=== PATIENT | female | born 1975 | race African-American/Black ===

== ENCOUNTER 2016-10-30 10:33 | Emergency (ER) | payer OTHER ==
[~2016-10-30] VITALS: Ht 157.5 cm; Wt 40.8 kg
[~2016-10-30 10:33] MED LIST: ACETAMINOPHEN-1 EAC2 ORAL; AUGMENTIN 875-1 EAC1 ORAL; AZITHROMYCIN250 MG ORAL; HYDROCODON-ACE1 EA16 ORAL; LEVAQUIN500 MG ORAL; NAPROXEN375 M2 ORAL; NORCO 10/3251 EA ORAL; VICODIN ES 7.51 EACH PO; ZANTAC150 MG ORAL
[2016-10-30] MEDS ORDERED: OXYCODONE HCL5 M2 ORAL (10:43)
[2016-10-30] MEDS ORDERED: Ketorolac 60mg Inj IM ONE (11:00)
--- NOTE | 2016-10-30 11:16 | Emergency Room Report ---
History of Present Illness General Chief Complaint: Lower Extremity Injury Source: Patient Present Illness HPI The patient tripped over a branch last week and twisted her right ankle and to her left foot. She's still has pain and difficulty with walking. She has to climb up stairs to get to home. The pain is reported 10/10 sharp and aching, some radiation up legs. She has not taken pain medicine. Swelling is getting better. Scrapes L foot. Tetanus UTD. No fevers, calf tenderness or swelling. No dyspnea. No dysuria. Sickle C disease. "I am used to taking strong pain medicine." Allergies: Coded Allergies: HYDROMORPHONE HCL (Verified Allergy, Unknown, Itching, 09/25/16) Needs Benadryl first. MORPHINE (Verified Allergy, Unknown, Itching, 09/25/16) Needs Benadryl first Patient History Past Medical History: see triage record Social History: Reports: smoking Social History Narrative at home Last Menstrual Period: Depo shot Reviewed Nursing Documentation: PMH: Agreed, PSxH: Agreed Nursing Documentation-PMH Past Medical History: No History, Except For Hx Hypertension: No Hx Pacemaker: No Hx Asthma: No Hx COPD: No Hx Diabetes: No Hx Cancer: No Hx Dialysis: No Hx Neurological Problems: No Hx Cerebrovascular Accident: No Hx Seizures: No Review of Systems All Other Systems: negative except mentioned in HPI Physical Exam Vital Signs Date Time Temp Pulse Resp B/P Pulse Ox O2 Delivery O2 Flow Rate FiO2 10/30/16 10:39 98.8 116 18 105/66 94 Room Air Sp02 EP Interpretation: reviewed, abnormal - slightly low interpreted by me ( smoker) General Appearance: well appearing, no apparent distress, thin Head: normocephalic, atraumatic Eyes: bilateral eye PERRL, bilateral eye normal inspection ENT: hearing grossly normal, normal voice, moist mucus membranes Neck: full range of motion, supple Respiratory: no respiratory distress, speaking full sentences Gastrointestinal: non tender Musculoskeletal: no calf tenderness, swelling - dorsum of L foot and R lateral maleolus. No ligament laxity. Knees not tender. 5th MT bilat normal. TTP mid foot L. Neurologic: alert, motor strength/tone normal, sensory intact, normal gait Psychiatric: mood/affect normal Skin: abrasions - L dorsum foot - healing Medical Decision Making Diagnostic Impression: Primary Impression: Right ankle sprain Qualified Codes: S93.431A - Sprain of tibiofibular ligament of right ankle, initial encounter Additional Impression: Spran/contuion L foot ER Course Patient presents with R ankle and L foot injuries sustained 1 week ago. Ddx: fx , contusion, sprain. No evidence of cellulitis. Xrays indicated. Xrays with STS and no fractures. Air cast (R - initially place on L by tech - replaced by me) and brandon L with good position and tension. Neurovasc normal. She states shot did nothing for her. Oral analgesic ordered. Attempt to review Cures - unable. Small tramadol rx given. Patient stable for outpatient observation and treatment. Other X-Ray Diagnostic Results Other X-Ray Diagnostic Results #1: X-Ray Ordered: R ankle EP Interpretation: Yes Findings: no fractures, no dislocation, other - STS lat maleolus Number of Views: 3 Other X-Ray Diagnostic Results #2: X-Ray Ordered: L foot EP Interpretation: Yes Findings: no fractures, no dislocation, no soft tissue swelling Number of Views: 3 Last Vital Signs Date Time Temp Pulse Resp B/P Pulse Ox O2 Delivery O2 Flow Rate FiO2 10/30/16 12:30 98.8 96 16 109/47 95 Room Air Status: improved Disposition: HOME, SELF-CARE Condition: Improved Scripts Tramadol Hcl* (ULTRAM*) 50 Mg Tablet 50 MG ORAL Q6H Y for For Pain, #6 TAB 0 Refills Prov: Matthew Birch M.D. 10/30/16 Ibuprofen* (MOTRIN*) 600 Mg Tablet 600 MG ORAL Q6H Y for For Pain, #20 TAB Prov: Matthew Birch M.D. 10/30/16 Referrals: [facility],REFERRING (PCP) Matthew Birch M.D. Oct 30, 2016 11:16
[2016-10-30] MEDS ORDERED: IBUPROFEN600 MG ORAL (11:51)
[2016-10-30] MEDS ORDERED: TRAMADOL HCL50 MG ORAL (11:51)
--- NOTE | 2016-10-30 11:56 | Diagnostic Imaging Report ---
Indications: Left foot injury, pain Technique: 3 views left foot. Findings: Comparison: None No fracture, dislocation, joint space widening , surrounding soft tissue swelling/foreign body/other abnormality, or other acute changes are identified. IMPRESSION: No evidence of acute injury to left foot.
[2016-10-30 12:30] VITALS: BP 109/47
[2016-10-30] MEDS ORDERED: Oxycodone/Acetaminophen 5-325 ORAL ONE (12:30)
--- NOTE | 2016-10-30 12:31 | Diagnostic Imaging Report ---
Indications: Right ankle injury, pain Technique: 3 views right ankle. Findings: Comparison: None Anterolateral soft tissues are very mildly swollen. No fracture, dislocation, joint space widening , additional soft tissue swelling/foreign body/gas, or other acute changes are identified. IMPRESSION: Consider ATFL sprain No other evidence of acute injury to the right ankle
== END 2016-10-30 12:30 | disposition home or self-care (01) ==
LOC: EMR 11:00
DX: S93.491A Sprain of other ligament of right ankle, initial encounter (principal); S93.602A Unspecified sprain of left foot, initial encounter; W01.0XXA Fall on same level from slipping, tripping and stumbling without subsequent striking against object, initial encounter; Y92.89 Other specified places as the place of occurrence of the external cause; Z88.6 Allergy status to analgesic agent
CPT/HCPCS: 29540; 96372; 99284

== ENCOUNTER 2016-12-03 16:06 | Emergency (ER) | payer OTHER ==
[~2016-12-03] VITALS: Ht 157.5 cm; Wt 45.4 kg
[~2016-12-03 16:06] MED LIST changes: +IBUPROFEN600 MG ORAL; +OXYCODONE HCL5 M2 ORAL; +TRAMADOL HCL50 MG ORAL
--- NOTE | 2016-12-03 17:30 | Emergency Room Report ---
History of Present Illness General Chief Complaint: Upper Respiratory Illness Source: Patient Present Illness HPI 41-year-old female presents to emergency Department complaining of productive cough x4 days denies fevers or chills also reports nasal congestion and pressure in the ears bilaterally. Denies recent travel reports ill contacts as her children all have similar symptoms. Patient denies abdominal pain, rash is her neck pain or stiffness denies headaches. Denies CP, Palpitations, LOC, AMS, dizziness, Changes in Vision, Sensation, paresthesias, or a sudden severe headache. Allergies: Coded Allergies: HYDROMORPHONE HCL (Verified Allergy, Unknown, Itching, 09/25/16) Needs Benadryl first. MORPHINE (Verified Allergy, Unknown, Itching, 09/25/16) Needs Benadryl first Patient History Past Medical History: see triage record Past Surgical History: none Pertinent Family History: none Last Menstrual Period: Depo Now: No Immunizations: UTD Reviewed Nursing Documentation: PMH: Agreed, PSxH: Agreed Nursing Documentation-PMH Hx Hypertension: No Hx Pacemaker: No Hx Asthma: No Hx COPD: No Hx Diabetes: No Hx Cancer: No Hx Dialysis: No Hx Neurological Problems: No Hx Cerebrovascular Accident: No Hx Seizures: No Review of Systems All Other Systems: negative except mentioned in HPI Physical Exam Vital Signs Date Time Temp Pulse Resp B/P Pulse Ox O2 Delivery O2 Flow Rate FiO2 12/03/16 17:08 98.2 96 16 112/75 100 Room Air Sp02 EP Interpretation: reviewed, normal General Appearance: no apparent distress, alert, GCS 15, non-toxic Head: normocephalic, atraumatic Eyes: bilateral eye PERRL, bilateral eye normal inspection ENT: hearing grossly normal, normal pharynx, no angioedema, normal voice, TMs + canals normal, uvula midline, moist mucus membranes, nasal congestion Neck: full range of motion, no meningismus, no bony tend, supple/symm/no masses Respiratory: chest non-tender, lungs clear, normal breath sounds, no rhonchi, no accessory muscle use, no wheezing, speaking full sentences Cardiovascular #1: regular rate, rhythm, no edema Musculoskeletal: back normal, gait/station normal, normal range of motion, non- tender Neurologic: alert, oriented x3, responsive, motor strength/tone normal, sensory intact, speech normal Psychiatric: judgement/insight normal, memory normal, mood/affect normal, no suicidal/homicidal ideation Skin: normal color, no rash, warm/dry, well hydrated Lymphatic: no adenopathy Medical Decision Making PA Attestation Dr. Birch is my supervising Physician whom patient management has been discussed with. Diagnostic Impression: Primary Impression: Bronchitis Additional Impression: Nasal congestion with rhinorrhea ER Course 41-year-old female presents to emergency Department complaining of productive cough x4 days denies fevers or chills also reports nasal congestion and pressure in the ears bilaterally. Denies recent travel reports ill contacts as her children all have similar symptoms. Ddx considered but are not limited to URI, pneumonia, PE, strep pharyngitis, meningitis. Vital signs: Pt.is afebrile VS are WNL H&PE are most consistent with bronchitis ORDERS: none required at this time, the diagnosis is clinical ED INTERVENTIONS: None required at this time. DISCHARGE: At this time pt. is stable for d/c to home. Will provide printed patient care instructions, and any necessary prescriptions. Care plan and follow up instructions have been discussed with the patient prior to discharge. Last Vital Signs Date Time Temp Pulse Resp B/P Pulse Ox O2 Delivery O2 Flow Rate FiO2 12/03/16 17:08 98.2 96 16 112/75 100 Room Air Disposition: HOME, SELF-CARE Condition: Stable Scripts Pseudoephedrine Hcl* (NEXAFED*) 30 Mg Tablet 30 MG ORAL Q6H Y for congestion for 7 Days, #21 TAB Prov: Samina Moy.AVel 12/03/16 Guaifenesin (Guaifenesin) 1,200 Mg Tab.er.12h 1200 MG PO BID for 10 Days, #20 TAB Prov: Samina Moy P.A. 12/03/16 Codeine/Promethazine Hcl* (PROMETHAZINE-CODEINE SYRUP*) 118 Ml Syrup 5 ML ORAL Q6H Y for For Cough, #118 ML 0 Refills Prov: Samina Moy.Isai 12/03/16 Referrals: NON PHYSICIAN (PCP) Patient Instructions: Acute Bronchitis Additional Instructions: Take medications as directed. Follow up with PCP in 3-5 days Return sooner to ED if new symptoms occur, or current symptoms become worse. Do not drink alcohol, drive, or operate heavy machinery while taking Cough Syrup as this may cause drowsiness. - Please note that this Emergency Department Report was dictated using [employer] wire operator technology software, occasionally this can lead to erroneous entry secondary to interpretation by the dictation equipment. Samina Moy Dec 03, 2016 17:30
[2016-12-03 17:33] VITALS: BP 118/81
[2016-12-03] MEDS ORDERED: PROMETHAZINE-C118 M1 ORAL (17:33)
[2016-12-03] MEDS ORDERED: NEXAFED30 MG ORAL (17:33)
[2016-12-03] MEDS ORDERED: GUAIFENESIN1200 MG PO (17:33)
[2016-12-03 18:26] VITALS: BP 118/81
== END 2016-12-03 18:26 | disposition home or self-care (01) ==
LOC: EMR 17:05
DX: J40 Bronchitis, not specified as acute or chronic (principal); R09.81 Nasal congestion; Z88.6 Allergy status to analgesic agent
CPT/HCPCS: 99284

== ENCOUNTER 2017-04-05 13:30 | Emergency (ER) | payer OTHER ==
[~2017-04-05] VITALS: Ht 157.5 cm; Wt 45.8 kg
[~2017-04-05 13:30] MED LIST changes: +GUAIFENESIN1200 MG PO; +NEXAFED30 MG ORAL; +PROMETHAZINE-C118 M1 ORAL
[2017-04-05] MEDS ORDERED: NKM (13:41)
[2017-04-05 13:46] VITALS: BP 109/70
[2017-04-05] MEDS ORDERED: Norco 7.5mg/325mg tab ORAL ONE (14:15)
--- NOTE | 2017-04-05 14:17 | Emergency Room Report ---
History of Present Illness General Chief Complaint: Pain Source: Patient Present Illness HPI 41-year-old female presents emergency department complaining of 10 out of 10 in severity right thumb pain times one day. Patient states she had acute onset after attempting to open a jar of jelly which was stuck closed and she was unable to open. Patient states she has moderate tenderness to the palmar aspect of her hand at the base of the left thumb. Patient denies erythema she reports mild swelling. denies trauma or fall otherwise. She denies increase in temperature to palpation patient also denies history of gout. Patient states she has a history of sickle cell trait and is worried that this may be due to sickle cell. Patient also reports right ear pain, nasal congestion, sore throat with increase in phlegm and intermittent cough x3 days. Patient rates her ear pain as 6/10 in severity and reports feeling increased pressure in her head and inability to breathe through her nose. Patient denies fevers, chills, neck pain/stiffness or ill contacts. Patient states that she does not usually have sickle cell flares however on occasion her primary care doctor will prescribe her some small amount of Trimble that usually subside her symptoms. Patient states she has not recently seen her primary care provider. Denies CP, Palpitations, LOC, AMS, dizziness, Changes in Vision, Sensation, paresthesias, or a sudden severe headache. Allergies: Coded Allergies: HYDROMORPHONE HCL (Verified Allergy, Unknown, Itching, 09/25/16) Needs Benadryl first. MORPHINE (Verified Allergy, Unknown, Itching, 09/25/16) Needs Benadryl first Patient History Past Medical History: see triage record Past Surgical History: none Last Menstrual Period: One month ago - on depo Now: No Reviewed Nursing Documentation: PMH: Agreed, PSxH: Agreed Nursing Documentation-PMH Hx Hypertension: No Hx Pacemaker: No Hx Asthma: No Hx COPD: No Hx Diabetes: No Hx Cancer: No Hx Dialysis: No Hx Neurological Problems: No Hx Cerebrovascular Accident: No Hx Seizures: No Review of Systems All Other Systems: negative except mentioned in HPI Physical Exam Vital Signs Date Time Temp Pulse Resp B/P Pulse Ox O2 Delivery O2 Flow Rate FiO2 04/05/17 13:36 98.1 97 16 109/70 97 Room Air Sp02 EP Interpretation: reviewed, normal General Appearance: no apparent distress, alert, GCS 15, non-toxic Head: normocephalic, atraumatic Eyes: bilateral eye PERRL, bilateral eye normal inspection ENT: hearing grossly normal, normal pharynx, no angioedema, normal voice, TMs + canals normal, uvula midline, nasal congestion, other - pharyngeal erythema in cobble stone appearance, no exudates or tonsillar swelling. Neck: full range of motion, supple/symm/no masses Respiratory: chest non-tender, lungs clear, normal breath sounds, no respiratory distress, no wheezing, speaking full sentences Cardiovascular #1: regular rate, rhythm, no edema Gastrointestinal: non tender, soft, no guarding, no rebound Rectal: deferred Musculoskeletal: back normal, gait/station normal, normal range of motion, tender - TTP to the thenar aspect of the right thumb, no snuff box ttp, no erythema, no appreciable swelling. Neurologic: alert, oriented x3, responsive, motor strength/tone normal, sensory intact, speech normal Psychiatric: judgement/insight normal, memory normal, mood/affect normal Skin: normal color, no rash, warm/dry, well hydrated Medical Decision Making PA Attestation Dr Mancia is my supervising Physician whom patient management has been discussed with. Diagnostic Impression: Primary Impression: Right wrist sprain Qualified Codes: S63.501A - Unspecified sprain of right wrist, initial encounter Additional Impression: Upper respiratory infection, viral ER Course 41-year-old female presents emergency department complaining of 10 out of 10 in severity right thumb pain times one day. Patient states she had acute onset after attempting to open a jar of jelly which was stuck closed and she was unable to open. Patient states she has moderate tenderness to the palmar aspect of her hand at the base of the left thumb. Patient denies erythema she reports mild swelling. denies trauma or fall otherwise. She denies increase in temperature to palpation patient also denies history of gout. Patient states she has a history of sickle cell trait and is worried that this may be due to sickle cell. Patient also reports right ear pain, nasal congestion, sore throat with increase in phlegm and intermittent cough x3 days. Patient rates her ear pain as 6/10 in severity and reports feeling increased pressure in her head and inability to breathe through her nose. Patient denies fevers, chills, neck pain/stiffness or ill contacts. Patient states that she does not usually have sickle cell flares however on occasion her primary care doctor will prescribe her some small amount of Trimble that usually subside her symptoms. Patient states she has not recently seen her primary care provider. Denies CP, Palpitations, LOC, AMS, dizziness, Changes in Vision, Sensation, paresthesias, or a sudden severe headache. Ddx considered but are not limited to Sickle cell crisis, Infection, Sprain, gout/pseudogout Fracture, Dislocation, sprain, URI, OM/OE Vital signs: are WNL, pt. is afebrile H&PE are most consistent with right thumb sprain and URI mainly due to congestion with post nasal drainage. ORDERS: none required at this time. pt. is NAD, non-toxic in appearance ED INTERVENTIONS: - Trimble PO for pain - Thumb spica Right wrist Splint applied by electro tech. Pt. remains neurovascularly intact. DISCHARGE: At this time pt. is stable for d/c to home. Will provide printed patient care instructions, and any necessary prescriptions. Care plan and follow up instructions have been discussed with the patient prior to discharge. Last Vital Signs Date Time Temp Pulse Resp B/P Pulse Ox O2 Delivery O2 Flow Rate FiO2 04/05/17 13:46 98.0 97 16 109/70 97 Room Air Disposition: HOME, SELF-CARE Condition: Stable Scripts Ibuprofen* (MOTRIN*) 600 Mg Tablet 600 MG ORAL THREE TIMES A DAY, #30 TAB 0 Refills Prov: Samina Moy P.A. 04/05/17 Guaifenesin (Guaifenesin) 1,200 Mg Tab.er.12h 1200 MG PO BID for 5 Days, #10 TAB Prov: Samina Moy P.A. 04/05/17 Pseudoephedrine Hcl* (NEXAFED*) 30 Mg Tablet 30 MG ORAL Q6H Y for congestion for 3 Days, #12 TAB Prov: Samina Moy P.A. 04/05/17 Codeine/Promethazine Hcl* (PROMETHAZINE-CODEINE SYRUP*) 118 Ml Syrup 5 ML ORAL Q6H Y for For Cough, #118 ML 0 Refills Prov: Samina Moy P.A. 04/05/17 Patient Instructions: Upper Respiratory Infection, Adult, [id number], Wrist Sprain Additional Instructions: Take medications as directed. Follow up with a Primary Care Provider in 3-5 days, even if your symptoms have resolved. --Please review list of primary care clinics, if you do not already have a primary care provider Return sooner to ED if new symptoms occur, or current symptoms become worse. Do not drink alcohol, drive, or operate heavy machinery while taking Cough Syrup as this may cause drowsiness. - Please note that this Emergency Department Report was dictated using [employer] payable payroll coordinator technology software, occasionally this can lead to erroneous entry secondary to interpretation by the dictation equipment. Samina Moy Apr 05, 2017 14:17
[2017-04-05] MEDS ORDERED: GUAIFENESIN1200 MG PO (14:19)
[2017-04-05] MEDS ORDERED: NEXAFED30 MG ORAL (14:19)
[2017-04-05] MEDS ORDERED: IBUPROFEN600 MG ORAL (14:19)
[2017-04-05] MEDS ORDERED: PROMETHAZINE-C118 M1 ORAL (14:19)
[2017-04-05 14:37] VITALS: BP 109/70
== END 2017-04-05 14:37 | disposition home or self-care (01) ==
LOC: EMR 14:11
DX: S63.501A Unspecified sprain of right wrist, initial encounter (principal); X50.9XXA Other and unspecified overexertion or strenuous movements or postures, initial encounter; Y92.89 Other specified places as the place of occurrence of the external cause; J06.9 Acute upper respiratory infection, unspecified; B34.9 Viral infection, unspecified; Z88.6 Allergy status to analgesic agent
CPT/HCPCS: 29260; 99284

== ENCOUNTER 2017-04-27 16:02 | Emergency (ER) | payer OTHER ==
[~2017-04-27] VITALS: Ht 157.5 cm; Wt 45.4 kg
[~2017-04-27 16:02] MED LIST changes: +NKM
[2017-04-27 16:44] VITALS: BP 114/70
[2017-04-27] MEDS ORDERED: NORCO 5-325 TA1 EAC1 ORAL (17:46)
[2017-04-27 18:27] VITALS: BP 114/70
--- NOTE | 2017-04-27 21:03 | Emergency Room Report ---
History of Present Illness General Chief Complaint: Abdominal Pain Source: Patient Present Illness HPI The patient is a 41-year-old female presenting for right wrist pain and total body pain. The patient states that she has a history of sickle cell disease and ran out of [employer] yesterday. She states that she has an appointment to see primary doctor in 2 days. Total-body patient describes a 10 out of 10 dull ache. The patient also injured the right wrist 2 weeks prior and was seen in this emergency department. X-ray was not done. She was placed in a splint and pain has continued. It is a 9/10 dull ache it is worse with wrist movement. She denies any other symptoms Allergies: Coded Allergies: HYDROMORPHONE HCL (Verified Allergy, Unknown, Itching, 09/25/16) Needs Benadryl first. MORPHINE (Verified Allergy, Unknown, Itching, 09/25/16) Needs Benadryl first Patient History Past Medical History: see triage record Social History: Reports: smoking Last Menstrual Period: Depo shot Reviewed Nursing Documentation: PMH: Agreed, PSxH: Agreed Nursing Documentation-PMH Past Medical History: No History, Except For Hx Hypertension: No Hx Pacemaker: No Hx Asthma: No Hx COPD: No Hx Diabetes: No Hx Cancer: No Hx Dialysis: No Hx Neurological Problems: No Hx Cerebrovascular Accident: No Hx Seizures: No Review of Systems All Other Systems: negative except mentioned in HPI Physical Exam Vital Signs Date Time Temp Pulse Resp B/P Pulse Ox O2 Delivery O2 Flow Rate FiO2 04/27/17 16:07 98.4 75 16 114/70 98 Room Air Sp02 EP Interpretation: reviewed, normal General Appearance: no apparent distress, alert, GCS 15, non-toxic Head: normocephalic, atraumatic Eyes: bilateral eye PERRL, bilateral eye normal inspection ENT: hearing grossly normal, normal pharynx, no angioedema, normal voice Musculoskeletal: back normal, gait/station normal, normal range of motion, tender - TTP over the palmar surface of mid wrist Neurologic: alert, oriented x3, responsive, motor strength/tone normal, sensory intact, speech normal Psychiatric: judgement/insight normal, memory normal, mood/affect normal, no suicidal/homicidal ideation Skin: normal color, no rash, warm/dry, well hydrated Lymphatic: no adenopathy Medical Decision Making PA Attestation Dr. Colón is my supervising physician. Patient management was discussed with my supervising physician Diagnostic Impression: Primary Impression: Sickle cell anemia Additional Impression: Wrist sprain Qualified Codes: S63.509D - Unspecified sprain of unspecified wrist, subsequent encounter ER Course The patient is a 41-year-old female with a history of sickle cell anemia and recent right wrist sprain presenting for total body pain and right wrist pain Ddx considered include but not limited to sprain/strain, fracture, contusion, narcotic pain medication seeking PE: NAD Right wrist: No obvious deformity. Tenderness to palpation over the mid palmar surface. Full active range of motion. Radial pulse 2+. Otherwise exam is unremarkable Extremities right wrist shows no acute findings The patient will be discharged home and needs to followup with pain management. She will continue using the splint provided at the last visit. ER precautions given Other X-Ray Diagnostic Results Other X-Ray Diagnostic Results : X-Ray ordered: R hand # of Views/Limited Vs Complete: 3 View Indication: Pain EP Interpretation: Yes Interpretation: no dislocation, no soft tissue swelling, no fractures Impression: No acute disease Interpreting ER Provider: Dr. Colón PA Scribe Text I am acting as scribe for my supervising physician. My supervising physician's interpretation of the R hand xrays are there are no fractures, dislocations or soft tissue swelling. Last Vital Signs Date Time Temp Pulse Resp B/P Pulse Ox O2 Delivery O2 Flow Rate FiO2 04/27/17 18:27 98.4 68 16 114/70 98 Room Air Status: improved Disposition: HOME, SELF-CARE Condition: Improved Scripts Hydrocodone Bit/Acetaminophen 5-325* (NORCO 5-325 TABLET*) 1 Each Tablet 1 TAB ORAL Q6HR Y for For Pain, #5 TAB Prov: NE OVIEDO 04/27/17 Referrals: [facility]ERR[facility] (PCP) Patient Instructions: Wrist Sprain Additional Instructions: I discussed my findings with the patient. All questions and concerns have been answered. Treatment and medication compliance have been addressed. I advised the patient that they need to follow up with PMD in 3-5 days. Return to ED if symptoms worsen, new symptoms arise, or if needed for any reason. Patient verbalized understanding of discharge instructions. NE OVIEDO Apr 27, 2017 21:03
--- NOTE | 2017-04-28 10:45 | Diagnostic Imaging Report ---
Indications: Right hand pain Technique: 3 views of the right hand. Findings: Comparison: None. Brain focally obscures the portion of the proximal aspect of the third digit. No fracture, dislocation, lytic destruction, periosteal reaction, surrounding soft tissue swelling, or other acute changes are demonstrated. No deformity, alignment abnormality, arthritic change, soft tissue calcification, or other chronic changes are demonstrated. IMPRESSION: Negative right hand series, with limitation as described.
== END 2017-04-27 18:28 | disposition home or self-care (01) ==
LOC: EMR 17:48
DX: S63.501D Unspecified sprain of right wrist, subsequent encounter (principal); D57.1 Sickle-cell disease without crisis; Z88.6 Allergy status to analgesic agent; F17.200 Nicotine dependence, unspecified, uncomplicated
CPT/HCPCS: 99283

== ENCOUNTER 2017-07-15 23:13 | Emergency (ER) | payer OTHER ==
[~2017-07-15] VITALS: Ht 157.5 cm; Wt 43.1 kg
[~2017-07-15 23:13] MED LIST changes: +NORCO 5-325 TA1 EAC1 ORAL
[2017-07-15] MEDS ORDERED: Norco 5mg/325mg tab ORAL ONE (23:45)
[2017-07-15] MEDS ORDERED: Lidocaine 1% MPF 10mg/ml 5ml INJ ONE (23:45)
[2017-07-16] MEDS ORDERED: BACTRIM DS TAB1 EAC1 ORAL (00:08)
[2017-07-16] MEDS ORDERED: KEFLEX500 MG ORAL (00:08)
[2017-07-16 00:15] VITALS: BP 119/73
[2017-07-16] MEDS ORDERED: Norco 5mg/325mg tab ORAL ONE (00:15)
--- NOTE | 2017-07-16 01:09 | Emergency Room Report ---
History of Present Illness General Chief Complaint: Pain Source: Patient Present Illness HPI Patient is 39-year-old female presented after increased right-sided buttock rash. Patient reports having accidentally stuck herself with a safety pin.The patient noticed increased swelling as well as increased pain. This had spontaneously drained. Patient any fever. She has not been vomiting. She denied any extremity numbness or weakness. She denies prior history of diabetes. Allergies: Coded Allergies: HYDROMORPHONE HCL (Verified Allergy, Unknown, Itching, 09/25/16) Needs Benadryl first. MORPHINE (Verified Allergy, Unknown, Itching, 09/25/16) Needs Benadryl first Patient History Past Medical History: see triage record Past Surgical History: other - abscess Now: No : 3 Para: 4 Reviewed Nursing Documentation: PMH: Agreed, PSxH: Agreed Nursing Documentation-PMH Hx Hypertension: No Hx Pacemaker: No Hx Asthma: No Hx COPD: No Hx Diabetes: No Hx Cancer: No Hx Dialysis: No Hx Neurological Problems: No Hx Cerebrovascular Accident: No Hx Seizures: No Review of Systems All Other Systems: negative except mentioned in HPI Physical Exam Vital Signs Date Time Temp Pulse Resp B/P (MAP) Pulse Ox O2 Delivery O2 Flow Rate FiO2 07/15/17 23:17 99.0 128 20 119/73 98 Room Air General Appearance: well appearing, no apparent distress Head: normocephalic, atraumatic ENT: hearing grossly normal, normal voice Neck: full range of motion, supple Respiratory: no respiratory distress, speaking full sentences Gastrointestinal: normal inspection, soft Musculoskeletal: normal inspection, no calf tenderness Neurologic: normal inspection, alert, oriented x3, responsive, normal gait Psychiatric: mood/affect normal Skin: other - right buttock induration, minimal erythema Procedures Incision and Drainage Incision and Drainage : Consent: Verbal Site: buttock Blade Size: 11 I & D Procedure: betadine prep Wound Location: other - buttock Wound's Depth, Shape: linear Anesthesia: 1% Lidocaine Volume Anesthetic (ccs): 10 Patient Tolerated: Well Complications: None Progress minimal purulent drainage Medical Decision Making Diagnostic Impression: Primary Impression: Abscess ER Course Patient presented for skin rash. Differential diagnosis included was not limited to abscess, cellulitis, folliculitis, Fourniere's gangrene. Patient's benign exam and does not appear to require any further imaging or laboratory testing at this time. The incision and drainage was attempted with minimal amount purulent drainage. The patient was prescribed antibiotics for infection. The patient is advised to follow up with primary care doctor in 1- 2 days. Patient is advised to return if any worsening condition or if any changes in status that are concerning. Last Vital Signs Date Time Temp Pulse Resp B/P (MAP) Pulse Ox O2 Delivery O2 Flow Rate FiO2 07/15/17 23:17 99.0 128 20 119/73 98 Room Air Status: improved Disposition: HOME, SELF-CARE Condition: Stable Scripts Trimethoprim/Sulfamethoxazole 160/800* (BACTRIM DS TABLET*) 1 Each Tablet 1 TAB ORAL Q12H, #14 TAB 0 Refills Prov: Anant Yanez 07/16/17 Cephalexin* (KEFLEX*) 500 Mg Capsule 500 MG ORAL Q6H, #28 CAP 0 Refills Prov: Anant Yanez 07/16/17 Patient Instructions: Anant Maddox Jul 16, 2017 01:09
== END 2017-07-16 00:15 | disposition home or self-care (01) ==
LOC: EMR 23:39
DX: L02.31 Cutaneous abscess of buttock (principal)
CPT/HCPCS: 10060; 99284

== ENCOUNTER 2017-08-09 15:38 | Emergency (ER) | payer OTHER ==
[~2017-08-09] VITALS: Ht 157.5 cm; Wt 40.8 kg
[~2017-08-09 15:38] MED LIST changes: +BACTRIM DS TAB1 EAC1 ORAL; +KEFLEX500 MG ORAL
--- NOTE | 2017-08-09 16:25 | Emergency Room Report ---
History of Present Illness General Chief Complaint: Upper Respiratory Illness Source: Medical Record (Samina Moy) Present Illness HPI 42 YO Female presents to the ED C/O intermittent productive cough with ST 7/10 pain , nasal congestion and rhinorrhea x 1 week. reports subjective fevers. pt. has tried OTC Robitussin without relief. pt. reports that she is currently taking Amoxicillin PO for dental infection that she is scheduled to have tooth pulled tomorrow at 11am. pt. reports recent travel, states youngest daughter had symptoms first which resolved on their own, however pt. and her oldest daughter have had more severe symptoms. denies rashes, abdominal pain, N/F/ Constipation or diarrhea. pt. denies neck pain or neck stiffness. Denies CP, Palpitations, LOC, AMS, dizziness, Changes in Vision, Sensation, paresthesias, or a sudden severe headache. (Samina Moy) Allergies: Coded Allergies: HYDROMORPHONE HCL (Verified Allergy, Unknown, Itching, 09/25/16) Needs Benadryl first. MORPHINE (Verified Allergy, Unknown, Itching, 09/25/16) Needs Benadryl first Patient History Past Medical History: see triage record Past Surgical History: none Pertinent Family History: none Last Menstrual Period: DEPO Now: No Reviewed Nursing Documentation: PMH: Agreed, PSxH: Agreed (Samina Moy) Nursing Documentation-PMH Hx Hypertension: No Hx Pacemaker: No Hx Asthma: No Hx COPD: No Hx Diabetes: No Hx Cancer: No Hx Dialysis: No Hx Neurological Problems: No Hx Cerebrovascular Accident: No Hx Seizures: No (Samina Moy) Review of Systems All Other Systems: negative except mentioned in HPI (Samina Moy) Physical Exam Vital Signs Date Time Temp Pulse Resp B/P (MAP) Pulse Ox O2 Delivery O2 Flow Rate FiO2 08/09/17 15:50 100.0 116 18 106/64 99 Room Air Sp02 EP Interpretation: reviewed, normal General Appearance: no apparent distress, alert, GCS 15, non-toxic Head: normocephalic, atraumatic Eyes: bilateral eye normal inspection, bilateral eye PERRL ENT: hearing grossly normal, normal voice, TMs + canals normal, uvula midline, moist mucus membranes, nasal congestion - clear rhinorrhea bilaterally, pharyngeal erythema - mild cobblestoning, no exudates, no tonsillar swelling. Neck: full range of motion, no meningismus, no bony tend, supple/symm/no masses Respiratory: chest non-tender, lungs clear, normal breath sounds, no respiratory distress, no wheezing, speaking full sentences Cardiovascular #1: no edema, no murmur, normal capillary refill, tachycardia Gastrointestinal: non tender, soft Musculoskeletal: back normal, gait/station normal, normal range of motion Neurologic: alert, oriented x3, responsive, motor strength/tone normal, sensory intact, speech normal Skin: normal color, no rash, warm/dry, well hydrated Lymphatic: no adenopathy (Samina Moy) Medical Decision Making PA Attestation Dr. Birch is my supervising Physician whom patient management has been discussed with. (Samina Moy) Diagnostic Impression: Primary Impression: Upper respiratory infection Qualified Codes: J06.9 - Acute upper respiratory infection, unspecified; B97.89 - Other viral agents as the cause of diseases classified elsewhere ER Course 42 YO Female presents to the ED C/O intermittent productive cough with ST 7/10 pain , nasal congestion and rhinorrhea x 1 week. reports subjective fevers. pt. has tried OTC Robitussin without relief. pt. reports that she is currently taking Amoxicillin PO for dental infection that she is scheduled to have tooth pulled tomorrow at 11am. pt. reports recent travel, states youngest daughter had symptoms first which resolved on their own, however pt. and her oldest daughter have had more severe symptoms. denies rashes, abdominal pain, N/F/ Constipation or diarrhea. pt. denies neck pain or neck stiffness. Denies CP, Palpitations, recent travel, LOC, AMS, dizziness, Changes in Vision, Sensation, paresthesias, or a sudden severe headache. Ddx considered but are not limited to URI, pneumonia, PE, strep pharyngitis, meningitis, bronchitis, CHF just to name a few. Vital signs: Pt. is afebrile however 100.0 possibly masked by an OTC medication ( pt. states last OTC Robitussin was yesterday). normal oxygen saturation, tachycardic. H&PE are most consistent with URI- no meningeal signs, oropharynx is not involved, no evidence of bacterial infection at this time, pt. does not meet [facility] Criteria. ORDERS: -CXR: No Acute disease ED INTERVENTIONS: None required at this time. DISCHARGE: At this time pt. is stable for d/c to home. Will provide printed patient care instructions, and any necessary prescriptions. Care plan and follow up instructions have been discussed with the patient prior to discharge. (Samina Moy) Chest X-Ray Diagnostic Results Chest X-Ray Diagnostic Results : Chest X-Ray Ordered: Yes # of Views/Limited/Complete: 1 View Indication: Other - productive cough x 1 week. EP Interpretation: Yes DAVID Xray: Interpretation reviewed, by supervising MD, and agrees with findings. Interpretation: no consolidation, no effusion, no pneumothorax Impression: No acute disease Electronically Signed by: Samina Moy PA-C (Samina Moy) Chest X-Ray Diagnostic Results : Electronically Signed by: Josefa documentation reviewed by me and is accurate, Matthew Birch MD. (Matthew Birch M.D.) Last Vital Signs Date Time Temp Pulse Resp B/P (MAP) Pulse Ox O2 Delivery O2 Flow Rate FiO2 08/09/17 15:50 100.0 116 18 106/64 99 Room Air (Samina Moy.Isai) Disposition: HOME, SELF-CARE Condition: Stable Scripts Multivitamins* (MULTIVITAMINS*) 1 Each Tablet 1 TAB ORAL DAILY, #30 TAB 0 Refills Prov: Samina Moy.AVel 08/09/17 Cetirizine Hcl/Pseudoephedrine (ZYRTEC-D TABLET) 1 Each Tab.er.12h 1 EACH ORAL Q12HR for 7 Days, #14 TAB Prov: Samina Moy P.A. 08/09/17 Guaifenesin (Guaifenesin) 1,200 Mg Tab.er.12h 1200 MG PO Q12HR, #20 TAB Prov: Samina Moy.A. 08/09/17 Codeine/Promethazine Hcl* (PROMETHAZINE-CODEINE SYRUP*) 118 Ml Syrup 5 ML ORAL Q6H Y for For Cough, #120 ML 0 Refills Prov: Samina Moy 08/09/17 Departure Forms: Return to Work Return to Work Date: Aug 12, 2017 Work Restrictions: None Return to Full Activity: Aug 12, 2017 Patient Instructions: Upper Respiratory Infection, Adult Additional Instructions: Take medications as directed. Follow up with a Primary Care Provider in 3-5 days, even if your symptoms have resolved. --Please review list of primary care clinics, if you do not already have a primary care provider Return sooner to ED if new symptoms occur, or current symptoms become worse. Do not drink alcohol, drive, or operate heavy machinery while taking Cough Syrup as this may cause drowsiness. - Please note that this Emergency Department Report was dictated using [employer] closer technology software, occasionally this can lead to erroneous entry secondary to interpretation by the dictation equipment. Samina Moy Aug 09, 2017 16:25 Matthew Birch M.D. Aug 11, 2017 11:05
[2017-08-09] MEDS ORDERED: ZYRTEC-D TABLE1 EACH ORAL (16:27)
[2017-08-09] MEDS ORDERED: PROMETHAZINE-C118 M1 ORAL (16:27)
[2017-08-09] MEDS ORDERED: GUAIFENESIN1200 MG PO (16:27)
[2017-08-09] MEDS ORDERED: MULTIVITAMINS1 EAC2 ORAL (16:31)
[2017-08-09 16:50] VITALS: BP 103/73
--- NOTE | 2017-08-10 13:21 | Diagnostic Imaging Report ---
Indication: COUGH Technique: One view of the chest Comparison: 04/21/2011 Findings: Lungs and pleural spaces are clear. Heart size is normal. No significant change Impression: No acute process This agrees with the preliminary interpretation provided by the emergency room physician
== END 2017-08-09 16:50 | disposition home or self-care (01) ==
LOC: EMR 15:48
DX: J06.9 Acute upper respiratory infection, unspecified (principal)
CPT/HCPCS: 71010; 99284

== ENCOUNTER 2017-11-03 16:29 | Emergency (ER) | payer OTHER ==
[~2017-11-03] VITALS: Ht 157.5 cm; Wt 45.4 kg
[~2017-11-03 16:29] MED LIST changes: +MULTIVITAMINS1 EAC2 ORAL; +ZYRTEC-D TABLE1 EACH ORAL
[2017-11-03] MEDS ORDERED: Acetaminophen 500mg (ES) tab ORAL ONE (17:00)
--- NOTE | 2017-11-03 17:09 | Emergency Room Report ---
History of Present Illness General Chief Complaint: Upper Respiratory Illness Source: Patient (Kamari Garza) Present Illness HPI 42-year-old female patient presents ER complaining of cough, JEAN, and fever x3days. Patient cough with sputum. Patient complains of worsening of JEAN with cough. Patient reports her chest pain and cough with deep breaths; states it hurts to breathe in deeply; reports chest pain guzman not radiate. Patient also complains of nasal congestion. Patient reports concern for pneumonia. Patient denies use of medication for relief of flu symptoms. Patient reports history of sickle cell; states this does not feel like sickle cell crisis. Reports use of Dilaudid for chronic pain; states she took a Dilaudid earlier today. Patient denies rash, nausea, vomiting, diarrhea, vision changes. Patient seen in ER with children with complaints of cough and flu-like symptoms. Patient also complains of "orange looking urine" x3days. Patient denies dysuria, hematuria, frequency urgency, vaginal discharge. Patient reports abdominal pain secondary to torn abdominal muscles following surgery; patient reports she has been seen by primary care physician for treatment and has appointment with surgeon for further treatment. (Kamari Garza) Allergies: Coded Allergies: HYDROMORPHONE HCL (Verified Allergy, Unknown, Itching, 09/25/16) Needs Benadryl first. MORPHINE (Verified Allergy, Unknown, Itching, 09/25/16) Needs Benadryl first Patient History Past Medical History: see triage record Last Menstrual Period: One week ago Now: No Reviewed Nursing Documentation: PMH: Agreed, PSxH: Agreed (Kamari Garza) Nursing Documentation-PMH Hx Hypertension: No Hx Pacemaker: No Hx Asthma: No Hx COPD: No Hx Diabetes: No Hx Cancer: No Hx Dialysis: No Hx Neurological Problems: No Hx Cerebrovascular Accident: No Hx Seizures: No (Kamari Garza) Review of Systems All Other Systems: negative except mentioned in HPI (Kamari Garza) Physical Exam Vital Signs Date Time Temp Pulse Resp B/P (MAP) Pulse Ox O2 Delivery O2 Flow Rate FiO2 11/03/17 16:53 101.5 118 18 109/73 95 Room Air Sp02 EP Interpretation: reviewed, normal General Appearance: alert, GCS 15, non-toxic, mild distress Head: normocephalic, atraumatic Eyes: bilateral eye normal inspection, bilateral eye PERRL, bilateral eye other - icterus ENT: hearing grossly normal, normal pharynx, no angioedema, normal voice, TMs + canals normal, uvula midline, moist mucus membranes Neck: full range of motion, supple/symm/no masses Respiratory: chest non-tender, lungs clear, normal breath sounds, speaking full sentences Cardiovascular #1: regular rate, rhythm Gastrointestinal: normal bowel sounds, soft, non-distended, no guarding, no rebound Genitourinary: no CVA tenderness Musculoskeletal: back normal, gait/station normal, normal range of motion, non- tender, calf tenderness Neurologic: alert, oriented x3, responsive, motor strength/tone normal, sensory intact, speech normal Psychiatric: mood/affect normal Lymphatic: no adenopathy (Kamari Garza) Procedures Critical Care Time Critical Care Time 45 minutes for multiple re\\re evaluations Clinical findings concerning for cardiopulmonary injury life-threatening presentation Not including any procedural time, (JULIET VARGAS D.O.) Medical Decision Making PA Attestation Dr. Vargas is my supervising Physician whom patient management has been discussed with. (Kamari Garza.Isai) Medicare Attestation Please refer to the note for the initial history examined the presentation At this time patient is evaluated and examined by myself as well I do agree with the workup and findings Patient shows significantly elevated white blood cell count Also hemolysis which is showing increased signs of bilirubinemia Patient's x-ray shows clear signs of infiltrate Patient further hydrated antibiotics initiated patient remains hemodynamically stable at this time Secondary to insurance purposes patient required transfer, (JULIET VARGAS D.O.) Diagnostic Impression: Primary Impression: UTI (urinary tract infection) Additional Impressions: Pneumonia Sickle cell anemia Leukocytosis ER Course Pt presents to ED c/o cough, fever, orange urine. Patient reports history of Sickle-cell anemia. DDX considered but are not limited to influenza, viral URI, pneumonia, strep throat, rhinitis, sinusitis, UTI. VITAL SIGNS are WNL, patient is afebrile. ORDERS: CXR UA Labs ordered: CBC, CMP, reticulocyte count, Troponin, BNP IV NS Tylenol for pain EKG ED COURSE: CURES report shows hydromorphone prescription fill on 10/26/17. Patient provided with Tylenol for pain. Consult with Dr. Vargas CXR shows diffuse infiltrates in right lobe of lung. EKG negative for ST elevations, arrhythmia. UA positive (results below). Elevated WBC in blood. Lab results (below) Dr. Vargas ordered levofloxacin, Zofran, Benadryl, and Dilaudid for patient. Consult with Dr. Vargas, patient will be transferred to [facility]. Labs Test 11/03/17 19:00 11/03/17 20:10 Urine Color Brown Urine Appearance Slightly cloudy Urine pH 5 (4.5-8.0) Urine Specific [place] 1.015 (1.005-1.035) Urine Protein 3+ (NEGATIVE) Urine Glucose (UA) Negative (NEGATIVE) Urine Ketones 1+ (NEGATIVE) Urine Occult Blood 2+ (NEGATIVE) Urine Nitrite Positive (NEGATIVE) Urine Bilirubin 3+ (NEGATIVE) Urine Ictotest Negative Urine Urobilinogen 12 MG/DL (0.0-1.0) Urine Leukocyte Esterase 2+ (NEGATIVE) Urine RBC 2-4 /HPF (0 - 2) Urine WBC 5-10 /HPF (0 - 2) Urine Squamous Epithelial Cells Few /LPF (NONE/OCC) Urine Amorphous Sediment Few /LPF (NONE) Urine Bacteria Many /HPF (NONE) (Kamari Garza P.AVel) Chest X-Ray Diagnostic Results Chest X-Ray Diagnostic Results : Chest X-Ray Ordered: Yes # of Views/Limited/Complete: 1 View Indication: Chest Pain EP Interpretation: Yes PA Xray: Interpretation reviewed, by supervising MD, and agrees with findings. Interpretation: no effusion, no pneumothorax, other - right middle lobe consolidation Impression: Other - pneumonia PA Scribe Text Jensen Garza PA-C (Kamari Garza P.AVel) Last Vital Signs Date Time Temp Pulse Resp B/P (MAP) Pulse Ox O2 Delivery O2 Flow Rate FiO2 11/03/17 16:53 101.5 118 18 109/73 95 Room Air (Kamari Garza P.AVel) Kamari Garza.Isai Nov 03, 2017 17:09 JULIET VARGAS D.O. Nov 03, 2017 21:26
[2017-11-03 18:00] VITALS: BP 105/70
[2017-11-03 19:29] LABS: BILIRUBIN, URINE 3+ (NEGATIVE); COLOR,URINE BROWN; GLUCOSE, URINE (UA) NEGATIVE (NEGATIVE); KETONES,URINE 1+ (NEGATIVE); LEUKOCYTE ESTERASE ,URINE 2+ (NEGATIVE); NITRITE,URINE POSITIVE (NEGATIVE); PH,URINE 5 (4.5-8.0); PROTEIN,URINE 3+ (NEGATIVE); UROBILINOGEN,URINE 12 MG/DL (0.0-1.0)
[2017-11-03 19:30] LABS: APPEARANCE,URINE SLIGHTLY CLOUDY
[2017-11-03] MEDS ORDERED: DiphenhydrAMINE 50mg/ml Inj IVP ONE (19:30)
[2017-11-03] MEDS ORDERED: HYDROmorphone 1mg/ml Carpuject IVP ONE ×2 (19:30→22:00)
[2017-11-03 20:34] LABS: HEMOGLOBIN 12.7 G/DL (12.0-16.0); MEAN CORPUSCULAR VOLUME 75 FL (80-99); PLATELET COUNT 369 K/UL (150-450); RED BLOOD COUNT 5.08 M/UL (4.20-5.40); RED CELL DISTRIBUTION WIDTH 16.2 % (11.6-14.8)
[2017-11-03 20:46] LABS: WHITE BLOOD COUNT 53.6 K/UL (4.8-10.8)
[2017-11-03 20:49] LABS: ANION GAP 15 mmol/L (5-15); BLOOD UREA NITROGEN 10 mg/dL (7-18); CALCIUM 10.1 MG/DL (8.5-10.1); CARBON DIOXIDE 27 MMOL/L (21-32); CHLORIDE 94 MMOL/L (98-107); CREATININE 0.9 MG/DL (0.55-1.30); POTASSIUM 3.6 MMOL/L (3.5-5.1); SODIUM 135 MMOL/L (136-145)
[2017-11-03 21:00] LABS: ALANINE AMINOTRANSFERASE 155 U/L (12-78); ALBUMIN 3.3 G/DL (3.4-5.0); ALBUMIN/GLOBULIN RATIO 0.6 (1.0-2.7); ALKALINE PHOSPHATASE 187 U/L (46-116); ASPARTATE AMINO TRANSFERASE 118 U/L (15-37); BILIRUBIN,TOTAL 7.4 MG/DL (0.2-1.0)
[2017-11-03 21:04] LABS: BILIRUBIN,DIRECT 4.8 MG/DL (0.0-0.3)
[2017-11-03 22:00] VITALS: BP 114/64
[2017-11-03 23:52] VITALS: BP 110/75
[2017-11-03 23:55] VITALS: BP 110/75
--- NOTE | 2017-11-04 08:47 | Diagnostic Imaging Report ---
Indication: Chest pain Technique: One view of the chest Comparison: 08/09/2017 Findings: Interim development of infiltrate in the right midlung. The left lung and bilateral pleural spaces are clear. The heart size is normal. Sclerotic changes of the humeral heads are noted, left greater than right Impression: Infiltrate in the right midlung, likely pneumonia
--- NOTE | 2017-11-04 17:14 | Cardiology Report ---
APPROVED REPORT EKG Measurement Heart [id number] Sinus tachycardia Possible Left atrial enlargement Nonspecific T wave abnormality Abnormal ECG
== END 2017-11-03 23:55 | disposition short-term general hospital (02) ==
LOC: EMR 17:05
DX: J18.9 Pneumonia, unspecified organism (principal); N39.0 Urinary tract infection, site not specified; D57.1 Sickle-cell disease without crisis; D72.829 Elevated white blood cell count, unspecified; Z88.6 Allergy status to analgesic agent
CPT/HCPCS: 36415; 71045; 80053; 81003; 82248; 83880; 84484; 85007; 85025; 85044; 87086; 93005; 96361; 96365; 96375; 96376; 99291; J1170; J1200; J1956; J2405

== ENCOUNTER 2017-12-03 11:11 | Emergency (ER) | payer OTHER ==
[~2017-12-03] VITALS: Ht 157.5 cm; Wt 44.5 kg
[2017-12-03 11:33] VITALS: BP 101/60
[2017-12-03 13:40] VITALS: BP_SYST 101; BP_SYST 113; BP_DIAS 60; BP_DIAS 64
--- NOTE | 2017-12-03 13:50 | Emergency Room Report ---
History of Present Illness General Chief Complaint: Skin Rash/Abscess Source: Patient Present Illness HPI 42 yo F noticed bump to R hip. not painful, states it is "squishy". no fever chill no other complains Allergies: Coded Allergies: HYDROMORPHONE HCL (Verified Allergy, Unknown, Itching, 09/25/16) Needs Benadryl first. MORPHINE (Verified Allergy, Unknown, Itching, 09/25/16) Needs Benadryl first Patient History Past Medical History: see triage record Past Surgical History: none Pertinent Family History: none Last Menstrual Period: Depo shot Reviewed Nursing Documentation: PMH: Agreed, PSxH: Agreed Nursing Documentation-PMH Past Medical History: No History, Except For Hx Hypertension: No Hx Pacemaker: No Hx Asthma: No Hx COPD: No Hx Diabetes: No Hx Cancer: No Hx Dialysis: No Hx Neurological Problems: No Hx Cerebrovascular Accident: No Hx Seizures: No Review of Systems All Other Systems: negative except mentioned in HPI Physical Exam Vital Signs Date Time Temp Pulse Resp B/P (MAP) Pulse Ox O2 Delivery O2 Flow Rate FiO2 12/03/17 11:28 97.0 86 16 97/62 96 Room Air 97.0 Sp02 EP Interpretation: reviewed, normal General Appearance: normal inspection, well appearing, no apparent distress, alert, GCS 15, non-toxic Head: normocephalic, atraumatic Eyes: bilateral eye normal inspection, bilateral eye PERRL, bilateral eye EOMI ENT: normal ENT inspection, normal pharynx, normal voice, moist mucus membranes Neck: normal inspection, full range of motion, supple Respiratory: normal inspection, lungs clear, normal breath sounds, no respiratory distress, no retraction, no wheezing, speaking full sentences, chest symmetrical Cardiovascular #1: normal inspection, regular rate, rhythm, no edema, normal capillary refill Cardiovascular #2: 2+ radial (R), 2+ radial (L) Gastrointestinal: normal inspection, non tender, soft, non-distended, no guarding Musculoskeletal: other - R hip with mobile, soft, nontender mass 2x2cm. no erythema no fluctuance Neurologic: normal inspection, alert, oriented x3, responsive, motor strength/ tone normal, sensory intact, normal gait, speech normal Psychiatric: normal inspection, judgement/insight normal, memory normal Skin: normal inspection, normal color, no rash, warm/dry, well hydrated, normal turgor Medical Decision Making Diagnostic Impression: Primary Impression: Lipoma of buttock Additional Impression: Cyst ER Course 42 yo F with R sided lump on hip likely lipoma from physical exam not c/w absscess - nontender, no erythema DC home with pmd 1 week for reeaal Last Vital Signs Date Time Temp Pulse Resp B/P (MAP) Pulse Ox O2 Delivery O2 Flow Rate FiO2 12/03/17 13:40 98.1 70 16 113/64 96 Room Air 98.1 Disposition: HOME, SELF-CARE Condition: Improved Additional Instructions: You are diagnosed with cyst/lipoma. Please follow-up with your doctor in one week for reevaluation. Please come back to the emergency room if you're experiencing increased pain, any redness, purulent drainage, from the site Nicholas Torrez M.D. Dec 03, 2017 13:50
== END 2017-12-03 13:40 | disposition home or self-care (01) ==
LOC: EMR 12:00
DX: D17.1 Benign lipomatous neoplasm of skin and subcutaneous tissue of trunk (principal); L72.9 Follicular cyst of the skin and subcutaneous tissue, unspecified
CPT/HCPCS: 99282

== ENCOUNTER 2017-12-08 20:47 | Emergency (ER) | payer OTHER ==
[~2017-12-08] VITALS: Ht 157.5 cm; Wt 44.5 kg
[2017-12-08 21:31] VITALS: BP 122/79
--- NOTE | 2017-12-08 21:51 | Emergency Room Report ---
History of Present Illness General Chief Complaint: Upper Respiratory Illness Source: Patient, Family Member Present Illness HPI Is a 42-year-old female withpast medical history. She presents with chief complaint of coughing congestion. Onset for the last 2 to 3 days. The whole family members here with the same thing. Allergies: Coded Allergies: HYDROMORPHONE HCL (Verified Allergy, Unknown, Itching, 09/25/16) Needs Benadryl first. MORPHINE (Verified Allergy, Unknown, Itching, 09/25/16) Needs Benadryl first Patient History Past Medical History: see triage record, old chart reviewed Past Surgical History: other Pertinent Family History: none Social History: Denies: smoking Now: No Immunizations: other Reviewed Nursing Documentation: PMH: Agreed, PSxH: Agreed Nursing Documentation-PMH Hx Hypertension: No Hx Pacemaker: No Hx Asthma: No Hx COPD: No Hx Diabetes: No Hx Cancer: No Hx Dialysis: No Hx Neurological Problems: No Hx Cerebrovascular Accident: No Hx Seizures: No Review of Systems Eye: Denies: eye pain, blurred vision ENT: Denies: ear pain, nose congestion, throat swelling Respiratory: Reports: cough, Denies: shortness of breath Cardiovascular: Denies: chest pain, palpitations Gastrointestinal: Denies: abdominal pain, diarrhea, nausea, vomiting Musculoskeletal: Denies: back pain, joint pain Skin: Denies: rash Neurological: Denies: headache, numbness Endocrine: Denies: increased thirst, increased urine Hematologic/Lymphatic: Denies: easy bruising All Other Systems: negative except mentioned in HPI Physical Exam Vital Signs Date Time Temp Pulse Resp B/P (MAP) Pulse Ox O2 Delivery O2 Flow Rate FiO2 12/08/17 20:50 98.6 79 16 122/79 98 Room Air 98.6 vitals normal Sp02 EP Interpretation: reviewed, normal General Appearance: well appearing, no apparent distress, alert Head: normocephalic, atraumatic Eyes: bilateral eye PERRL, bilateral eye EOMI ENT: hearing grossly normal, normal pharynx Neck: full range of motion, supple, no meningismus Respiratory: chest non-tender, lungs clear, normal breath sounds Cardiovascular #1: regular rate, rhythm, no murmur Gastrointestinal: normal bowel sounds, non tender, no mass, no organomegaly, no bruit, non-distended Musculoskeletal: back normal, gait/station normal, normal range of motion Psychiatric: mood/affect normal Skin: warm/dry Medical Decision Making Diagnostic Impression: Primary Impression: Upper respiratory infection Qualified Codes: J06.9 - Acute upper respiratory infection, unspecified ER Course patient with a viral illness. No wheezing or coughing was she is here. We'll discharge home. Last Vital Signs Date Time Temp Pulse Resp B/P (MAP) Pulse Ox O2 Delivery O2 Flow Rate FiO2 12/08/17 21:31 98.6 79 16 122/79 98 Room Air 98.6 Status: improved Disposition: HOME, SELF-CARE Condition: Stable Referrals: [facility],REFERRING (PCP) Patient Instructions: Upper Respiratory Infection, Adult Additional Instructions: follow-up with your 7 days. Return of worse. JAYA SANTOS M.D. Dec 08, 2017 21:51
[2017-12-08 22:00] VITALS: BP 122/79
== END 2017-12-08 22:00 | disposition home or self-care (01) ==
LOC: EMR 21:26
DX: J06.9 Acute upper respiratory infection, unspecified (principal); Z88.5 Allergy status to narcotic agent
CPT/HCPCS: 99282

== ENCOUNTER 2018-02-13 20:27 | Emergency (ER) | payer OTHER ==
[~2018-02-13] VITALS: Ht 157.5 cm; Wt 44.5 kg
[2018-02-13 20:35] VITALS: BP 133/72
[2018-02-13] MEDS ORDERED: Augmentin 875mg Tab ORAL ONE (21:15)
[2018-02-13] MEDS ORDERED: Tetanus/Diptheria/Pertussis Vaccine 0.5ml Syr IM ONE (21:15)
[2018-02-13] MEDS ORDERED: AUGMENTIN 875-1 EAC1 ORAL (21:49)
--- NOTE | 2018-02-13 21:52 | Diagnostic Imaging Report ---
EXAM: XR Right Hand Complete, 3 or More Views CLINICAL HISTORY: PAIN TECHNIQUE: Frontal, lateral and oblique views of the right hand. COMPARISON: No relevant prior studies available. FINDINGS: Bones/joints: Unremarkable. No acute fracture. No dislocation. Soft tissues: Unremarkable. No radiopaque foreign body. IMPRESSION: Normal right hand x-rays.
[2018-02-13 22:00] VITALS: BP 0/0
--- NOTE | 2018-02-13 22:16 | Emergency Room Report ---
History of Present Illness General Chief Complaint: Animal Bite Source: Patient, Medical Record Present Illness HPI 42-year-old female presents ED status post dog bite. States her dog bit her hand today. She has had this dog since October. Dog is otherwise healthy. Tetanus unknown. Pain is throbbing, 8 out of 10, nonradiating. Denies fevers or chills. Denies any discharge. No other aggravating or relieving factors. Denies any other associated symptoms Allergies: Coded Allergies: HYDROMORPHONE HCL (Verified Allergy, Unknown, Itching, 09/25/16) Needs Benadryl first. MORPHINE (Verified Allergy, Unknown, Itching, 09/25/16) Needs Benadryl first Patient History Past Medical History: none Past Surgical History: none Pertinent Family History: none Social History: Denies: smoking, alcohol use, drug use Now: No Immunizations: UTD Reviewed Nursing Documentation: PMH: Agreed; PSxH: Agreed Nursing Documentation-PMH Past Medical History: No History, Except For Hx Hypertension: No Hx Pacemaker: No Hx Asthma: No Hx COPD: No Hx Diabetes: No Hx Cancer: No Hx Dialysis: No Hx Neurological Problems: No Hx Cerebrovascular Accident: No Hx Seizures: No Review of Systems All Other Systems: negative except mentioned in HPI Physical Exam Vital Signs Date Time Temp Pulse Resp B/P (MAP) Pulse Ox O2 Delivery O2 Flow Rate FiO2 02/13/18 20:35 98.9 99 16 133/72 97 Room Air 99.0 Sp02 EP Interpretation: reviewed, normal General Appearance: no apparent distress, alert, GCS 15, non-toxic Head: normocephalic Eyes: bilateral eye normal inspection, bilateral eye PERRL ENT: normal ENT inspection Neck: normal inspection Respiratory: normal inspection Cardiovascular #1: normal inspection Gastrointestinal: normal inspection Rectal: deferred Genitourinary: no CVA tenderness Musculoskeletal: normal range of motion, swelling - dorsum R hand. no active bleeding Neurologic: alert, oriented x3, responsive, motor strength/tone normal, sensory intact, speech normal Psychiatric: normal inspection Skin: other - bite dutton to dorsum R hand Lymphatic: normal inspection Medical Decision Making Diagnostic Impression: Primary Impression: Dog bite of hand Qualified Codes: S61.451A - Open bite of right hand, initial encounter; W54.0XXA - Bitten by dog, initial encounter ER Course Hospital Course 42-year-old F presents ED c/o R hand pain s/p dog bite Differential diagnoses include: abscess, cellulitis, ankle fracture, dislocation Clinical course Patient placed on stretcher. After initial history and physical, wound is irrigated. I ordered tetanus and Xray of R hand Patient is driving, patient has 4 children with her. I told her I cannot provide her with pain medication here. 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 Patient takes Dilaudid 4 mg at home Xray - no evidence of fracture/dislocation. acewrap applied. given augmentin I explained to patient that given this is a dog bite I cannot suture the wounds. However I will prescribe her antibiotics. Patient agrees with plan. Diagnosis -dog bite Stable and discharged to home with prescription Rx augmentin. Followup with PMD. Return to ED if symptoms recur or worsen Other X-Ray Diagnostic Results Other X-Ray Diagnostic Results : X-Ray ordered: R hand # of Views/Limited Vs Complete: 3 View Indication: Pain EP Interpretation: Yes Interpretation: no dislocation, no soft tissue swelling, no fractures, nonspecific bowel gas Impression: No acute disease Electronically Signed by: Electronically signed by Marc Rogers MD Last Vital Signs Date Time Temp Pulse Resp B/P (MAP) Pulse Ox O2 Delivery O2 Flow Rate FiO2 02/13/18 22:00 0/0 02/13/18 20:35 210.0 99 16 97 Room Air 210.0 Status: improved Disposition: HOME, SELF-CARE Condition: Stable Scripts Amoxicillin/Potassium Clav 875-125* (AUGMENTIN 875-125 TABLET*) 1 Each Tablet 1 TAB ORAL TWICE A DAY, #14 TAB Prov: Marc Rogers MD 02/13/18 Patient Instructions: Animal Bite, [id number] Marc Rogers MD February 13, 2018 22:16
== END 2018-02-13 22:00 | disposition home or self-care (01) ==
LOC: EMR 21:57
DX: S61.451A Open bite of right hand, initial encounter (principal); W54.0XXA Bitten by dog, initial encounter; Y92.9 Unspecified place or not applicable; Z23 Encounter for immunization; Z88.5 Allergy status to narcotic agent
CPT/HCPCS: 90471; 90715; 99283

== ENCOUNTER 2018-02-26 22:51 | Emergency (ER) | payer OTHER ==
[~2018-02-26] VITALS: Ht 157.5 cm; Wt 45.8 kg
[2018-02-26 23:00] VITALS: BP 104/65
[2018-02-26] MEDS ORDERED: IBUPROFEN600 MG ORAL (23:10)
[2018-02-26] MEDS ORDERED: AUGMENTIN 875-1 EAC1 ORAL (23:10)
--- NOTE | 2018-02-26 23:10 | Emergency Room Report ---
History of Present Illness General Chief Complaint: Animal Bite Source: Patient Present Illness HPI Is a 42-year-old female who is right-hand dominant. She presents with a dog bite to her right wrist. Onset was around 3 PM. Her 2 dogs were fighting and she try to break it up. In the process sustained a laceration to the right wrist. She has similar symptom 2 weeks ago and received tetanus then. Painful with movement. No drainage. No fever chills but no nausea no vomiting. Allergies: Coded Allergies: HYDROMORPHONE HCL (Verified Allergy, Unknown, Itching, 09/25/16) Needs Benadryl first. MORPHINE (Verified Allergy, Unknown, Itching, 09/25/16) Needs Benadryl first Patient History Past Medical History: see triage record, old chart reviewed Past Surgical History: other Pertinent Family History: none Social History: Reports: smoking Now: No Immunizations: UTD Reviewed Nursing Documentation: PMH: Agreed; PSxH: Agreed Nursing Documentation-PMH Hx Hypertension: No Hx Pacemaker: No Hx Asthma: No Hx COPD: No Hx Diabetes: No Hx Cancer: No Hx Dialysis: No Hx Neurological Problems: No Hx Cerebrovascular Accident: No Hx Seizures: No Review of Systems Eye: Denies: eye pain, blurred vision ENT: Denies: ear pain, nose congestion, throat swelling Respiratory: Denies: cough, shortness of breath Cardiovascular: Denies: chest pain, palpitations Gastrointestinal: Denies: abdominal pain, diarrhea, nausea, vomiting Musculoskeletal: Reports: joint pain, muscle pain; Denies: back pain Skin: Denies: rash Neurological: Denies: headache, numbness Endocrine: Denies: increased thirst, increased urine Hematologic/Lymphatic: Denies: easy bruising All Other Systems: negative except mentioned in HPI Physical Exam Vital Signs Date Time Temp Pulse Resp B/P (MAP) Pulse Ox O2 Delivery O2 Flow Rate FiO2 02/26/18 22:53 98.2 113 18 100/61 98 Room Air 98.2 vitals with tachycardia Sp02 EP Interpretation: reviewed, normal General Appearance: well appearing, no apparent distress, alert Head: normocephalic, atraumatic Eyes: bilateral eye PERRL, bilateral eye EOMI ENT: hearing grossly normal, normal pharynx Neck: full range of motion, supple, no meningismus Respiratory: chest non-tender, lungs clear, normal breath sounds Cardiovascular #1: regular rate, rhythm, no murmur Gastrointestinal: normal bowel sounds, non tender, no mass, no organomegaly, no bruit, non-distended Musculoskeletal: back normal, gait/station normal, normal range of motion, other - Right wrist: There is a 2 cm laceration on the wrist near the radial aspect. No drainage. No tendon involvement. Contused tissue. Pulses normal. Sensation normal. Neurologic: alert, oriented x3 Psychiatric: mood/affect normal Skin: warm/dry Medical Decision Making Diagnostic Impression: Primary Impression: Dog bite of hand Qualified Codes: S61.451A - Open bite of right hand, initial encounter; W54.0XXA - Bitten by dog, initial encounter ER Course Patient with a dog bite to the right hand. Explained to the patient that I would not suture this up because of risk for infection. We'll let it heal secondarily. No evidence of tendon involvement. No foreign body. We'll discharge home with antibiotics. Last Vital Signs Date Time Temp Pulse Resp B/P (MAP) Pulse Ox O2 Delivery O2 Flow Rate FiO2 02/26/18 22:53 98.2 113 18 100/61 98 Room Air 98.2 Status: improved Disposition: HOME, SELF-CARE Condition: Stable Scripts Ibuprofen* (MOTRIN*) 600 Mg Tablet 600 MG ORAL THREE TIMES A DAY, #30 TAB 0 Refills Prov: JAYA SANTOS M.D. 02/26/18 Amoxicillin/Potassium Clav 875-125* (AUGMENTIN 875-125 TABLET*) 1 Each Tablet 1 TAB ORAL TWICE A DAY, #14 TAB Prov: JAYA SANTOS M.D. 02/26/18 Patient Instructions: Animal Bite Additional Instructions: Follow-up with your doctor in 7 days. Keep wound clean. Return for evidence of infection. JAYA SANTOS M.D. Feb 26, 2018 23:10
[2018-02-26] MEDS ORDERED: Bacitracin Oint UD TOPIC ONE (23:15)
[2018-02-26 23:24] VITALS: BP 104/65
== END 2018-02-26 23:24 | disposition home or self-care (01) ==
LOC: EMR 23:10
DX: S61.511A Laceration without foreign body of right wrist, initial encounter (principal); W54.0XXA Bitten by dog, initial encounter; Y92.009 Unspecified place in unspecified non-institutional (private) residence as the place of occurrence of the external cause; Z88.5 Allergy status to narcotic agent
CPT/HCPCS: 99284

== ENCOUNTER 2018-09-19 00:16 | Emergency (ER) | payer OTHER ==
[~2018-09-19] VITALS: Ht 157.5 cm; Wt 45.4 kg
[2018-09-19 00:53] VITALS: BP 117/74
[2018-09-19] MEDS ORDERED: Bactrim-DS 1 tab ORAL ONE (01:15)
[2018-09-19] MEDS ORDERED: BACTRIM DS TAB1 EAC1 ORAL (01:19)
--- NOTE | 2018-09-19 01:20 | Emergency Room Report ---
History of Present Illness General Chief Complaint: Skin Rash/Abscess Source: Patient, Medical Record Present Illness HPI Is a 43-year-old female with a history of sickle cell. She presents with an abscess to the left cheek area. She had a puncture wound on 3-4 days ago. He got infected and was draining. Now is now draining. She has some swelling and pain to that area. No fever or chills. Pain is 8 out of 10. She says she is out of her Dilaudid. Denies any other complaint. Known nausea no vomiting. No fever chills. Worse with palpation. Allergies: Coded Allergies: MORPHINE (Verified Allergy, Unknown, Itching, 09/25/16) Needs Benadryl first Patient History Past Medical History: see triage record, old chart reviewed Past Surgical History: other Pertinent Family History: none Social History: Denies: smoking Last Menstrual Period: 08/2018 Now: No Immunizations: other Reviewed Nursing Documentation: PMH: Agreed; PSxH: Agreed Nursing Documentation-PMH Past Medical History: No History, Except For Hx Hypertension: No Hx Pacemaker: No Hx Asthma: No Hx COPD: No Hx Diabetes: No Hx Cancer: No Hx Dialysis: No Hx Neurological Problems: No Hx Cerebrovascular Accident: No Hx Seizures: No Review of Systems Eye: Denies: eye pain, blurred vision ENT: Denies: ear pain, nose congestion, throat swelling Respiratory: Denies: cough, shortness of breath Cardiovascular: Denies: chest pain, palpitations Gastrointestinal: Denies: abdominal pain, diarrhea, nausea, vomiting Musculoskeletal: Denies: back pain, joint pain Skin: Denies: rash Neurological: Denies: headache, numbness Endocrine: Denies: increased thirst, increased urine Hematologic/Lymphatic: Denies: easy bruising All Other Systems: negative except mentioned in HPI Physical Exam Vital Signs Date Time Temp Pulse Resp B/P (MAP) Pulse Ox O2 Delivery O2 Flow Rate FiO2 09/19/18 00:33 98.6 108 12 117/74 98 Room Air vitals normal Sp02 EP Interpretation: reviewed, normal General Appearance: well appearing, no apparent distress, alert Head: normocephalic, atraumatic Eyes: bilateral eye PERRL, bilateral eye EOMI ENT: hearing grossly normal, normal pharynx Neck: full range of motion, supple, no meningismus Respiratory: chest non-tender, lungs clear, normal breath sounds Cardiovascular #1: regular rate, rhythm, no murmur Gastrointestinal: normal bowel sounds, non tender, no mass, no organomegaly, no bruit, non-distended Genitourinary: other - Left buttock with an indurated area of 3 cm. She has a central whitish lesion. Musculoskeletal: back normal, gait/station normal, normal range of motion Neurologic: alert, oriented x3 Psychiatric: mood/affect normal Skin: warm/dry Procedures Incision and Drainage Incision and Drainage : Consent: Verbal Site: Left buttock Blade Size: 11 I & D Procedure: betadine prep Wound Location: pelvis Anesthesia: 1% Lidocaine Volume Anesthetic (ccs): 3 Patient Tolerated: Well Complications: None Progress Area clean with Betadine. Local anesthetic 1% lidocaine without epinephrine. I made a 2 some incision. There is only scant amount of pus expressed. Likely very broken up. Wound irrigated. Medical Decision Making Diagnostic Impression: Primary Impression: Abscess ER Course Patient with an abscess that's mostly drained already. There is a lot of take kristan on her buttock already. She said she is out of her Dilaudid. She said she get 80 tablets twice a week. And is not time for her. I point out that on the [facility] system she's also get 50 additional tablets twice a week. Therefore she gets 260 tablets every month. She should not be out. We'll discharge home. No necrotizing fasciitis. No foreign body. Last Vital Signs Date Time Temp Pulse Resp B/P (MAP) Pulse Ox O2 Delivery O2 Flow Rate FiO2 09/19/18 00:53 98.6 108 12 117/74 98 Room Air Status: improved Disposition: HOME, SELF-CARE Condition: Stable Scripts Trimethoprim/Sulfamethoxazole 160/800* (BACTRIM DS TABLET*) 1 Each Tablet 1 TAB ORAL Q12H, #14 TAB 0 Refills Prov: Jarvis Jansen MD 09/19/18 Patient Instructions: Abscess Additional Instructions: Keep wound clean. Clean with hydroperoxide. Follow-up with your DrVel in 2 days for recheck. Follow-up with your doctor for refill your medication. Return if worse. Jarvis Jansen MD Sep 19, 2018 01:20
[2018-09-19 01:24] VITALS: BP 117/74
[2018-09-19] MEDS ORDERED: Norco 5mg/325mg tab ORAL ONE (01:30)
== END 2018-09-19 01:30 | disposition home or self-care (01) ==
LOC: EMR 01:30
DX: L02.31 Cutaneous abscess of buttock (principal)
CPT/HCPCS: 10060; 99283

== ENCOUNTER 2018-12-02 20:29 | Emergency (ER) | payer OTHER ==
[~2018-12-02] VITALS: Ht 157.5 cm; Wt 47.2 kg
[2018-12-02] MEDS ORDERED: NKM (21:02)
[2018-12-02] MEDS ORDERED: HYDROCODON-ACE1 EA15 ORAL (21:40)
[2018-12-02] MEDS ORDERED: IBUPROFEN600 MG ORAL (21:40)
[2018-12-02] MEDS ORDERED: BACTRIM DS TAB1 EAC1 ORAL (21:40)
--- NOTE | 2018-12-02 21:41 | Emergency Room Report ---
History of Present Illness General Chief Complaint: Skin Rash/Abscess Source: Patient Present Illness HPI Is a 43-year-old female with history of sickle cell. She presents with chief complaint abscess to left buttock. This is a recurrent issue. This is the third time. This time was there for about 3 days. Worse the last day. Swollen. Tender to palpation. 7 out of 10 pain. No nausea no vomiting. No drainage. She thought it was a spider bite. Allergies: Coded Allergies: MORPHINE (Verified Allergy, Unknown, Itching, 09/25/16) Needs Benadryl first Patient History Past Medical History: see triage record, old chart reviewed Past Surgical History: other Pertinent Family History: none Social History: Denies: smoking Last Menstrual Period: oct Now: No : 4 Para: 4 Immunizations: other Reviewed Nursing Documentation: PMH: Agreed; PSxH: Agreed Nursing Documentation-PMH Hx Hypertension: No Hx Pacemaker: No Hx Asthma: No Hx COPD: No Hx Diabetes: No Hx Cancer: No Hx Dialysis: No Hx Neurological Problems: No Hx Cerebrovascular Accident: No Hx Seizures: No Review of Systems Eye: Denies: eye pain, blurred vision ENT: Denies: ear pain, nose congestion, throat swelling Respiratory: Denies: cough, shortness of breath Cardiovascular: Denies: chest pain, palpitations Gastrointestinal: Denies: abdominal pain, diarrhea, nausea, vomiting Musculoskeletal: Denies: back pain, joint pain Skin: Denies: rash Neurological: Denies: headache, numbness Endocrine: Denies: increased thirst, increased urine Hematologic/Lymphatic: Denies: easy bruising All Other Systems: negative except mentioned in HPI Physical Exam Vital Signs Date Time Temp Pulse Resp B/P (MAP) Pulse Ox O2 Delivery O2 Flow Rate FiO2 12/02/18 20:55 98.4 90 16 95/55 96 Room Air vitals normal Sp02 EP Interpretation: reviewed, normal General Appearance: well appearing, no apparent distress, alert Head: normocephalic, atraumatic Eyes: bilateral eye PERRL, bilateral eye EOMI ENT: hearing grossly normal, normal pharynx Neck: full range of motion, supple, no meningismus Respiratory: chest non-tender, lungs clear, normal breath sounds Cardiovascular #1: regular rate, rhythm, no murmur Gastrointestinal: normal bowel sounds, non tender, no mass, no organomegaly, no bruit, non-distended Musculoskeletal: back normal, gait/station normal, normal range of motion Psychiatric: mood/affect normal Skin: warm/dry, other - Left buttock: There is a fluctuant area of about 3 cm with induration around it measured about 5 cm. No necrosis. Tender to palpation. Procedures Incision and Drainage Incision and Drainage : Consent: Verbal Site: Left buttock Blade Size: 11 I & D Procedure: betadine prep, sterile drapes applied, sterile dressing applied, gauze wick placed Wound Location: other - Buttock Anesthesia: 1% Lidocaine Volume Anesthetic (ccs): 7 Patient Tolerated: Well Complications: None Progress I made a 2 cm incision and there was mild amount of pus expressed. Loculated area broken up. Area irrigated and packed. Patient tolerated procedure without a problem. Medical Decision Making Diagnostic Impression: Primary Impression: Abscess ER Course Patient with an abscess to left buttock. Most likely MRSA. No evidence of necrotizing fasciitis. No evidence of deep infection. We'll discharge home. Last Vital Signs Date Time Temp Pulse Resp B/P (MAP) Pulse Ox O2 Delivery O2 Flow Rate FiO2 12/02/18 20:55 98.4 90 16 95/55 96 Room Air Status: improved Disposition: HOME, SELF-CARE Condition: Stable Scripts Ibuprofen* (MOTRIN*) 600 Mg Tablet 600 MG ORAL THREE TIMES A DAY, #30 TAB 0 Refills Prov: Jarvis Jansen MD 12/02/18 Hydrocodone/Acetaminophen 5-325* (HYDROCODONE/ACETAMINOPHEN 5-325*) 1 Each Tablet 1 TAB ORAL Q6H PRN for For Pain, #10 TAB 0 Refills Prov: Jarvis Jansen MD 12/02/18 Trimethoprim/Sulfamethoxazole 160/800* (BACTRIM DS TABLET*) 1 Each Tablet 1 TAB ORAL Q12H, #14 TAB 0 Refills Prov: Jarvis Jansen MD 12/02/18 Patient Instructions: Abscess Additional Instructions: Follow-up in 2 days for recheck and packing removal. Return if symptom worsen. Jarvis Jansen MD Dec 02, 2018 21:41
[2018-12-02] MEDS ORDERED: Bactrim-DS 1 tab ORAL ONE (21:45)
[2018-12-02] MEDS ORDERED: Norco 5mg/325mg tab ORAL ONE (21:45)
[2018-12-02 22:45] VITALS: BP 95/55
== END 2018-12-02 23:09 | disposition home or self-care (01) ==
LOC: EMR 21:00
DX: L02.31 Cutaneous abscess of buttock (principal)
CPT/HCPCS: 10060; 99283; Z7502

== ENCOUNTER 2018-12-06 21:16 | Emergency (ER) | payer OTHER ==
[~2018-12-06] VITALS: Ht 157.5 cm; Wt 47.6 kg
[~2018-12-06 21:16] MED LIST changes: +HYDROCODON-ACE1 EA15 ORAL
[2018-12-06 22:01] VITALS: BP 94/58
--- NOTE | 2018-12-06 22:05 | NUR ---
ER Nurse Note: Pt came from home c/o left butt wound evulation. Pt was concerened that it is not healing and noticing drainage. Pt expressed 10/10 pain. Pt applied dressing prior to arrival. Will continue to [facility].
--- NOTE | 2018-12-06 22:55 | NUR ---
ER Nurse Note: Pt seen, treated, medically cleared by ERMD for discharge. Discharge instructions with repeat verbalization by pt but left without signing papers. Instructed pt to follow up with primary care provider within one week. Pt a&ox4, VSS, no signs of distress. ID band removed. Pt left with steady gait via own transporation.
--- NOTE | 2018-12-07 01:19 | Emergency Room Report ---
History of Present Illness General Chief Complaint: Wound Recheck/Suture Removal Source: Patient Present Illness HPI Patient presents for evaluation of an incision and drainage of the left buttock area That was performed here early last week Reports that the packing has come out since then The discomfort has significantly improved Also feels that the swelling and redness has improved Patient is currently on antibiotics Denies any back pain denies any fevers or chills Allergies: Coded Allergies: MORPHINE (Verified Allergy, Unknown, Itching, 09/25/16) Needs Benadryl first Patient History Past Medical History: see triage record Pertinent Family History: none Last Menstrual Period: oct Now: No : 4 Para: 3 Reviewed Nursing Documentation: PMH: Agreed; PSxH: Agreed Nursing Documentation-PMH Hx Hypertension: No Hx Pacemaker: No Hx Asthma: No Hx COPD: No Hx Diabetes: No Hx Cancer: No Hx Dialysis: No Hx Neurological Problems: No Hx Cerebrovascular Accident: No Hx Seizures: No Review of Systems All Other Systems: negative except mentioned in HPI Physical Exam Vital Signs Date Time Temp Pulse Resp B/P (MAP) Pulse Ox O2 Delivery O2 Flow Rate FiO2 12/06/18 21:36 98.4 87 16 94/58 96 Room Air Sp02 EP Interpretation: reviewed, normal General Appearance: no apparent distress Head: normocephalic, atraumatic Eyes: bilateral eye PERRL, bilateral eye EOMI ENT: hearing grossly normal, normal pharynx Neck: supple Respiratory: lungs clear, no retraction, no accessory muscle use Cardiovascular #1: regular rate, rhythm Musculoskeletal: normal inspection Neurologic: alert, oriented x3 Psychiatric: normal inspection Skin: other - Incision open left mid buttock area, dressing also has some drainage on it, minimal fluctuance is palpable around, no obvious erythema Lymphatic: no adenopathy Medical Decision Making Diagnostic Impression: Primary Impression: Encounter for wound re-check ER Course The area of incision and drainage appears to be healing appropriately There is continued discharge from the area which is appropriate Patient is recommended for soakings dressing changes and is stable for close outpatient follow-up Last Vital Signs Date Time Temp Pulse Resp B/P (MAP) Pulse Ox O2 Delivery O2 Flow Rate FiO2 12/06/18 22:55 98.4 78 16 94/58 96 Room Air Status: improved Disposition: HOME, SELF-CARE Condition: Stable Referrals: [facility] (PCP) Patient Instructions: Incision and Drainage, Care After, Wound Check Additional Instructions: Patient is provided with the discharge instructions notified to follow up with primary doctor in the next 2-3 days otherwise return to the er with any worsening symptoms. Please note that this report is being documented using [employer] technology. This can lead to erroneous entry secondary to incorrect interpretation by the dictating instrument. Ananth Avina DO Dec 07, 2018 01:19
== END 2018-12-06 22:55 | disposition home or self-care (01) ==
LOC: EMR 21:44
DX: L02.31 Cutaneous abscess of buttock (principal); Z88.6 Allergy status to analgesic agent; Z48.01 Encounter for change or removal of surgical wound dressing
CPT/HCPCS: 99281

== ENCOUNTER 2019-03-25 23:26 | Emergency (ER) | payer OTHER ==
[~2019-03-25] VITALS: Ht 157.5 cm; Wt 47.2 kg
[2019-03-25 23:40] VITALS: BP 106/72
[2019-03-26] VITALS: BP 106/72
--- NOTE | 2019-03-26 | NUR ---
ER Nurse Note: Pt came from home c/o abscesses on bilateral buttock. Pt stated the abscess on LT side drained after warm water soak; open skin, no drainage. RT side skin is intact, redded, hard on palpation. Pt states 9/10 pain and took a norco for pain, uneffective. Pt a&ox4, VSS, no fever, no signs of distress. Will continue to [facility].
--- NOTE | 2019-03-26 00:04 | Emergency Room Report ---
History of Present Illness General Chief Complaint: Skin Rash/Abscess Source: Patient Present Illness HPI Patient presents with 2 gluteal areas of swelling. 1 started draining yesterday during a hot bath. She gets severe pain. She took [place] over the last time earlier this morning. She denies any fevers or chills. There is no nausea vomiting diarrhea dysuria. Her last tetanus was last year. When asked if these occurred because of skin popping or injecting herself she laughs and does not answer. She rates the pain 10/10, burning aching pressure. Worse when she applies pressure. The pain is constant but improved by the medication she is taking. She had a gluteal abscess on the left-hand side in November of this year. It was incised and drained. She has SC disease. Allergies: Coded Allergies: MORPHINE (Verified Allergy, Unknown, Itching, 09/25/16) Needs Benadryl first Patient History Past Medical History: see triage record Social History: Reports: smoking Social History Narrative daughter drove Now: No Reviewed Nursing Documentation: PMH: Agreed; PSxH: Agreed Nursing Documentation-PMH Hx Hypertension: No Hx Pacemaker: No Hx Asthma: No Hx COPD: No Hx Diabetes: No Hx Cancer: No Hx Dialysis: No Hx Neurological Problems: No Hx Cerebrovascular Accident: No Hx Seizures: No Review of Systems All Other Systems: negative except mentioned in HPI Physical Exam Vital Signs Date Time Temp Pulse Resp B/P (MAP) Pulse Ox O2 Delivery O2 Flow Rate FiO2 03/25/19 23:40 98.6 113 16 106/72 (83) 98 Room Air Sp02 EP Interpretation: reviewed, normal General Appearance: well appearing, no apparent distress, GCS 15, non-toxic Head: normocephalic, atraumatic Eyes: bilateral eye normal inspection, bilateral eye PERRL ENT: hearing grossly normal, normal voice, moist mucus membranes Neck: full range of motion, supple Respiratory: no respiratory distress, speaking full sentences Cardiovascular #1: regular rate, rhythm Cardiovascular #2: 2+ radial (R) Gastrointestinal: normal inspection Genitourinary: no CVA tenderness Musculoskeletal: back normal, digits/nails normal, gait/station normal, normal range of motion, no calf tenderness Neurologic: alert, oriented x3, grossly normal Psychiatric: mood/affect normal Skin: other - Right gluteal area with 2 x 3 cm area of induration with minimal erythema without fluctuance. Left gluteal area open lesion of skin without drainage or erythema however induration is present Medical Decision Making Diagnostic Impression: Primary Impression: Abscess Additional Impression: Cellulitis Qualified Codes: L03.317 - Cellulitis of buttock ER Course Patient presents with 2 abscesses. One is already draining. The other one is deep and there is no fluctuance. It may not be ready to be incised and drained at this time. Discussed that we will start antibiotics with the patient. She understands this. If the infection on the right gluteal area gets worse and she is advised to return. If is not better with antibiotics she will return in 2 days time. Patient stable for outpatient observation and treatment. Last Vital Signs Date Time Temp Pulse Resp B/P (MAP) Pulse Ox O2 Delivery O2 Flow Rate FiO2 03/26/19 00:50 98.6 03/26/19 00:30 76 16 106/72 98 Room Air Status: improved Disposition: HOME, SELF-CARE Condition: Improved Scripts Bacitracin (Bacitracin) 28.4 Gm Oint...g. 1 APPLIC TOPIC BID, #20 GM Prov: Matthew Birch MD 03/26/19 Trimethoprim/Sulfamethoxazole 160/800* (BACTRIM DS TABLET*) 1 Each Tablet 1 TAB ORAL Q12H, #14 TAB 0 Refills Prov: Matthew Birch MD 03/26/19 Hydrocodone Bit/Acetaminophen 5-325* (NORCO 5-325*) 1 Each Tablet 1 TAB ORAL Q6H PRN for For Pain, #8 TAB 0 Refills Prov: Matthew Birch MD 03/26/19 Matthew Birch MD Mar 26, 2019 00:04
[2019-03-26] MEDS ORDERED: BACITRACIN15 GM TOPIC (00:07)
[2019-03-26] MEDS ORDERED: NORCO 5-325 TA1 EACH ORAL (00:07)
[2019-03-26] MEDS ORDERED: BACTRIM DS TAB1 EAC1 ORAL (00:07)
[2019-03-26] MEDS ORDERED: Bactrim-DS 1 tab ONE (00:11)
[2019-03-26] MEDS ORDERED: oxyCODONE HCL/Acetaminophen 5/325mg ORAL ONE ×2 (00:11→00:15)
[2019-03-26] MEDS ORDERED: Bactrim-DS 1 tab ORAL ONE (00:15)
--- NOTE | 2019-03-26 00:30 | NUR ---
ER Nurse Note: Pt seen, treated, medically cleared for discharge by ERMD. Discharge instuctions and prescriptions given with repeat verbalization by pt. Emphasized pt to montior for infection and take the whole course of antibiotics. Instructed pt to follow up PCP and return if abscess gets worse after antibiotics. All orders completed per ERMD orders. Pt a&ox4, VSS, no signs of distress. Pt denies pain. ID band removed. Pt ambulaitory with steady gait, left with all belongings, left with own transportation.
--- NOTE | 2019-03-26 00:53 | NUR ---
Note undone in EDM - 03/26/19 at 0059 by [email or web address] ER Nurse Note: Pt seen, treated, medically cleared for discharge by ERMD. Discharge instuctions and prescriptions given with repeat verbalization by pt. Emphasized pt to montior for infection and take the whole course of antibiotics. Instructed pt to follow up PCP and return if abscess gets worse after antibiotics. All orders completed per ERMD orders. Pt a&ox4, VSS, no signs of distress. Pt denies pain. ID band removed. Pt ambulaitory with steady gait, left with all belongings, left with own transportation.
== END 2019-03-26 00:30 | disposition home or self-care (01) ==
LOC: EMR 23:55
DX: L02.31 Cutaneous abscess of buttock (principal); L03.317 Cellulitis of buttock; F17.200 Nicotine dependence, unspecified, uncomplicated; Z88.6 Allergy status to analgesic agent
CPT/HCPCS: 99282